=== PATIENT | male | born 1985 | race Caucasian/White ===

== ENCOUNTER 2016-11-14 18:00 | Emergency (ER) | payer OTHER, SELFPAY ==
[2016-11-14 18:00] VITALS: BMI 27.4
[2016-11-14 18:32] VITALS: BP 104/62; PULSE 80; RESP 20; TEMP 99.2; O2SAT 98
[2016-11-14] MEDS ORDERED: Oxycodone/Acetaminophen 5/325 mg Tab PO STA (18:44)
--- NOTE | 2016-11-14 18:47 | ED PDOC ---
Lower Extremity Pain/Injury Time Seen by Provider: 11/14/16 18:42 Chief Complaint (Nursing): Lower Extremity Problem/Injury Chief Complaint (Provider): Right knee pain History Per: Patient History/Exam Limitations: no limitations Onset/Duration Of Symptoms: Days (x 1) Current Symptoms Are (Timing): Still Present Additional Complaint(s): Hernandez is a 31 y/o male who presents to the ED complaining of right knee pain, after sustaining an injury earlier today. He describes hearing a snapping sound when he slipped and twisted his right knee today. Patient reports history of a ligament tear surgery 3 years ago. Previously followed by [facility] in [place]. Orthopedist: [facility] Past Medical History Reviewed: Historical Data, Nursing Documentation, Vital Signs Vital Signs: Last Vital Signs Temp 99.2 F 11/14/16 18:28 Pulse 80 11/14/16 18:28 Resp 20 11/14/16 18:28 BP 104/62 11/14/16 18:28 Pulse Ox 98 11/14/16 18:28 - Medical History PMH: No Chronic Diseases - Surgical History Surgical History: Appendectomy Other surgeries: ligament tear surgery - Family History Family History: States: Unknown Family Hx - Social History Current smoker - smoking cessation education provided: No Alcohol: None Drugs: Denies - Home Medications Home Medications: Ambulatory Orders Medication Instructions Recorded Tramadol HCl [Ultram] 50 mg PO Q6 #8 tab 11/14/16 - Allergies Allergies/Adverse Reactions: Allergies Allergy/AdvReac Type Severity Reaction Status Date / Time aspirin Allergy RASH Verified 11/14/16 18:50 ibuprofen [From Advil] Allergy RASH Verified 11/14/16 18:50 Review of Systems ROS Statement: Except As Marked, All Systems Reviewed And Found Negative Constitutional: Positive for: Other (Injury earlier today) Musculoskeletal: Positive for: Leg Pain (Right knee pain) Physical Exam - Reviewed Nursing Documentation Reviewed: Yes Vital Signs Reviewed: Yes - Physical Exam Appears: Positive for: Non-toxic, No Acute Distress Head Exam: Positive for: ATRAUMATIC, NORMAL INSPECTION, NORMOCEPHALIC Skin: Positive for: Normal Color, Warm, Dry Eye Exam: Positive for: EOMI, Normal appearance, PERRL ENT: Positive for: Normal ENT Inspection Neck: Positive for: Normal, Painless ROM, Supple Cardiovascular/Chest: Positive for: Regular Rate, Rhythm. Negative for: Murmur Respiratory: Positive for: Normal Breath Sounds. Negative for: Accessory Muscle Use, Respiratory Distress Gastrointestinal/Abdominal: Positive for: Normal Exam, Soft. Negative for: Tenderness Back: Positive for: Normal Inspection. Negative for: Vertebral Tenderness Extremity: Positive for: Normal ROM, Swelling (Swelling appreciated at the right knee), Other (Pulses normal). Negative for: Tenderness (to the knee) Neurologic/Psych: Positive for: Alert, Oriented - ECG O2 Sat by Pulse Oximetry: 98 (RA) Pulse Ox Interpretation: Normal Medical Decision Making Medical Decision Making: Time: 18:44 Impression: Most likely no fracture, high likelihood of ligament tear Plan: --Needs outpatient MRI and follow up with Orthopedic Surgeon --Ortho RICE instructions provided --Patient will be given knee immobilizer and Rx for Tramadol for pain control Scribe Attestation: Documented by Светлана Valentino, acting as a scribe for Latosha Mariscal PA-C. Provider Scribe Attestation: All medical record entries made by the Scribe were at my direction and personally dictated by me. I have reviewed the chart and agree that the record accurately reflects my personal performance of the history, physical exam, medical decision making, and the department course for this patient. I have also personally directed, reviewed, and agree with the discharge instructions and disposition. Disposition - Clinical Impression Clinical Impression: Knee pain, Knee injury - Disposition Referrals: [facility] [Outside] Condition: FAIR Prescriptions: Tramadol HCl [Ultram] 50 mg PO Q6 #8 tab Instructions: Swollen Knee Joint (ED), Knee Pain (ED) Forms: [facility] ED School/Work Excuse
== END 2016-11-14 19:24 | disposition home or self-care (01) ==
LOC: H.ER 18:00
DX: S89.91XA Unspecified injury of right lower leg, initial encounter (principal); X50.9XXA Other and unspecified overexertion or strenuous movements or postures, initial encounter; Y92.89 Other specified places as the place of occurrence of the external cause

== ENCOUNTER 2017-12-20 13:29 | Emergency (ER) | payer OTHER, SELFPAY ==
[2017-12-20 13:49] VITALS: BMI 29.0
[2017-12-20] MEDS ORDERED: Sodium Chloride 0.9% 1,000 ML IV STA (14:07)
--- NOTE | 2017-12-20 14:29 | ED PDOC ---
Syncope/Near Syncope/Dizziness Time Seen by Provider: 12/20/17 13:54 Chief Complaint (Nursing): Dizziness/Lightheaded Chief Complaint (Provider): Dizziness/Lightheaded History Per: Patient History/Exam Limitations: no limitations Onset/Duration Of Symptoms: Days (x1.5 weeks) Activity At Onset Of Symptoms: Standing Associated Symptoms Preceding Syncopal Episode: Lightheadedness Additional Complaint(s): Patient is a 32 y/o male with no significant past medical history who presents to the ED complaining of intermittent dizziness, onset a week and half ago. Patient reports feeling lightheaded normally with the dizziness but today states he felt as though the room was spinning. He states initially dizziness came on when he went from a sitting position to a standing position but toay symptoms come on any time he turns his head. He has an associated mild intermittent headache that is more intense today than usual. Otherwise: (+) lightheadedness, (+) mild intermittent headache, (-) trauma, (- ) tinnitus, (-) hearing loss, (-) chest pain, (-) dyspnea, (-) fever, (-) vomiting, (-) diarrhea, (-) syncope, (-) GI bleeding, (-) no recent illness, ( -) shortness of breath, (-) palpitations. Past Medical History Reviewed: Historical Data, Nursing Documentation, Vital Signs Vital Signs: Last Vital Signs Temp 98.2 F 12/20/17 13:48 Pulse 70 12/20/17 13:48 Resp 16 12/20/17 13:48 BP 124/80 12/20/17 13:48 Pulse Ox 97 12/20/17 13:48 - Medical History PMH: No Chronic Diseases - Surgical History Surgical History: Appendectomy - Family History Family History: States: Diabetes (father) - Social History Alcohol: Occasional - Home Medications Home Medications: Ambulatory Orders Medication Instructions Recorded Cane 1 each MC DAILY #1 each 11/14/16 Tramadol HCl [Ultram] 50 mg PO Q6 #8 tab 11/14/16 - Allergies Allergies/Adverse Reactions: Allergies Allergy/AdvReac Type Severity Reaction Status Date / Time aspirin Allergy RASH Verified 11/14/16 18:50 ibuprofen [From Advil] Allergy RASH Verified 11/14/16 18:50 Review of Systems ROS Statement: Except As Marked, All Systems Reviewed And Found Negative Constitutional: Negative for: Fever Cardiovascular: Negative for: Chest Pain, Palpitations Respiratory: Negative for: Shortness of Breath Neurological: Positive for: Headache, Dizziness Physical Exam - Reviewed Nursing Documentation Reviewed: Yes Vital Signs Reviewed: Yes - Physical Exam Comments: GENERALIZED APPEARANCE:Patient is awake, alert, oriented x3 in mild distress. SKIN: Warm, dry; (-) cyanosis. HEAD: (-) scalp swelling or tenderness. EYES: (-) conjunctival pallor, (+) horizontal nystagmus ENMT: Mucous membranes dry. NECK: (-) tenderness, (-) stiffness, (-) lymphadenopathy. CHEST AND RESPIRATORY: (-) rales, (-) rhonchi, (-) wheezes; breath sounds equal bilaterally. HEART AND CARDIOVASCULAR: (-) irregularity; (-) murmur, (-) gallop. ABDOMEN AND GI: Soft; (-) distention, (-) tenderness, (-) rebound, (-) guarding , (-) palpable masses, (-) flank tenderness. EXTREMITIES: (-) deformity; (-) edema. Distal pulses: present. NEURO AND PSYCH: Mental status as above. 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 Strength symmetric. Gait: normal. - ECG ECG Rhythm: Positive for: Normal ST Segment, Sinus Bradycardia Rate: 54 O2 Sat by Pulse Oximetry: 97 (RA) Medical Decision Making Medical Decision Making: Time: 14::06 Impression: Dizziness Initial Plan: --CT Head w/o contrast --EKG --CMP --Drug screen --Troponin I --ED urine dipstick --CBC w/ diff --CXR --Antivert --IV Fluids Scribe Attestation: Documented by Evan Grullon acting as a scribe for Haleigh Ring PA-C Provider Scribe Attestation: All medical record entries made by the Scribe were at my direction and personally dictated by me. I have reviewed the chart and agree that the record accurately reflects my personal performance of the history, physical exam, medical decision making, and the department course for this patient. I have also personally directed, reviewed, and agree with the discharge instructions and disposition. Disposition - Disposition
[2017-12-20 14:37] LABS: BASO # 0.1 K/uL (0.0-0.2); BASO % 1.1 % (0.0-2.0); EOS # 0.3 K/uL (0.0-0.7); EOS % 4.8 % (0.0-4.0); LYMPH # 2.2 K/uL (1.0-4.3); LYMPH % 30.6 % (20.0-40.0); MEAN CELL VOLUME 86.4 fl (80.0-94.0); MEAN CORPUSCULAR HEMOGLOBIN 29.6 pg (27.0-31.0); MEAN CORPUSCULAR HGB CONC 34.3 g/dL (33.0-37.0); MEAN PLATELET VOLUME 7.2 fl (7.2-11.7); MONO # 0.9 K/uL (0.0-0.8); NEUT # 3.7 K/uL (1.8-7.0); NEUT % 51.5 % (50.0-75.0); NRBC % 0.1 % (0.0-0.0); RBC 5.39 Mil/uL (4.40-5.90); WHITE BLOOD COUNT 7.1 K/uL (4.8-10.8)
--- NOTE | 2017-12-20 14:38 | ED PDOC ---
Syncope/Near Syncope/Dizziness Time Seen by Provider: 12/20/17 13:54 Chief Complaint (Nursing): Dizziness/Lightheaded Chief Complaint (Provider): Dizziness/Lightheaded History Per: Patient History/Exam Limitations: no limitations Onset/Duration Of Symptoms: Days (x1.5 weeks) Activity At Onset Of Symptoms: Standing Associated Symptoms Preceding Syncopal Episode: Lightheadedness Possible Causative Factor(s): Lightheaded W/Standing Additional Complaint(s): Patient is a 32 y/o male with no significant past medical history who presents to the ED complaining of intermittent dizziness, onset a week and half ago. Patient reports describing the dizziness as lightheadedness which was initially intermittent however today states he felt as though the room was spinning. He states initially dizziness came on when he went from a sitting position to a standing position but today symptoms occur any time he turns his head. He has an associated mild intermittent headache that is more intense today than usual. Otherwise: (+) lightheadedness, (+) mild intermittent headache, (-) trauma, (- ) tinnitus, (-) hearing loss, (-) chest pain, (-) dyspnea, (-) fever, (-) URI, ( -) vomiting, (-) diarrhea, (-) syncope, (-) GI bleeding, (-) no recent illness , (-) shortness of breath, (-) palpitations. Past Medical History Vital Signs: Last Vital Signs Temp 98.2 F 12/20/17 13:48 Pulse 70 12/20/17 13:48 Resp 16 12/20/17 13:48 BP 124/80 12/20/17 13:48 Pulse Ox 97 12/20/17 14:31 - Medical History PMH: No Chronic Diseases - Surgical History Surgical History: Appendectomy - Family History Family History: States: Diabetes (father) - Social History Alcohol: Occasional - Home Medications Home Medications: Ambulatory Orders Medication Instructions Recorded Cane 1 each MC DAILY #1 each 11/14/16 Tramadol HCl [Ultram] 50 mg PO Q6 #8 tab 11/14/16 Meclizine [Meclizine*] 25 mg PO Q6 PRN #20 tab 12/20/17 - Allergies Allergies/Adverse Reactions: Allergies Allergy/AdvReac Type Severity Reaction Status Date / Time aspirin Allergy RASH Verified 11/14/16 18:50 ibuprofen [From Advil] Allergy RASH Verified 11/14/16 18:50 Review of Systems Constitutional: Negative for: Fever Cardiovascular: Negative for: Chest Pain, Palpitations Respiratory: Negative for: Shortness of Breath Gastrointestinal: Negative for: Vomiting Neurological: Positive for: Headache, Dizziness Physical Exam - Reviewed Nursing Documentation Reviewed: Yes Vital Signs Reviewed: Yes - Physical Exam Comments: GENERALIZED APPEARANCE:Patient is awake, alert, oriented x3 in mild distress. SKIN: Warm, dry; (-) cyanosis. HEAD: (-) scalp swelling or tenderness. EYES: (-) conjunctival pallor. ENMT: Mucous membranes dry. NECK: (-) tenderness, (-) stiffness, (-) lymphadenopathy. CHEST AND RESPIRATORY: (-) rales, (-) rhonchi, (-) wheezes; breath sounds equal bilaterally. HEART AND CARDIOVASCULAR: (-) irregularity; (-) murmur, (-) gallop. ABDOMEN AND GI: Soft; (-) distention, (-) tenderness, (-) rebound, (-) guarding , (-) palpable masses, (-) flank tenderness. EXTREMITIES: (-) deformity; (-) edema. Distal pulses: present. NEURO AND PSYCH: Mental status as above. 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 Strength symmetric. Gait: not tested at this time. - Laboratory Results Result Diagrams: 12/20/17 14:33 12/20/17 14:33 - ECG ECG Rhythm: Positive for: Normal ST Segment, Sinus Bradycardia Rate: 54 O2 Sat by Pulse Oximetry: 97 (RA) Pulse Ox Interpretation: Normal Medical Decision Making Medical Decision Making: Time: 14:06 Impression: Dizziness Initial Plan: --CT Head w/o contrast --EKG --CMP --Drug screen --Troponin I --ED urine dipstick --CBC w/ diff --CXR --Antivert --IV Fluids CXR : NAD, as read by AUGIE. EKG : NSR at 54 bpm, (-) acute ST changes, as read by AUGIE. Udip : +blood, otherwise all (-) CT head without contrast: No acute intracranial abnormality. Labs reviewed and all within normal limits including negative troponin. On reevaluation, patient reports improvement of symptoms, denies any headache, dizziness, chest pain or shortness of breath. On exam, patient remains awake alert and oriented 3 in no acute distress. VSS. Neck is supple, repeat neuro exam shows no focal findings, gait is steady. Diagnostic results discussed with the patient in great detail. Diagnosis of vertigo discussed with the patient. Based on history, exam and diagnostic results plan will be for outpatient follow -up. Advised to follow up with the clinic in 1-2 days without fail. Advised to take medication as prescribed. Return to the emergency room at any time for any new or worsening symptoms. Patient states he fully agrees with and understands discharge instructions. States that he agrees with the plan and disposition. Verbalized and repeated discharge instructions and plan. I have given the patient opportunity to ask any additional questions. Scribe Attestation: Documented by Evan Grullon acting as a scribe for Haleigh Ring PA-C Provider Scribe Attestation: All medical record entries made by the Scribe were at my direction and personally dictated by me. I have reviewed the chart and agree that the record accurately reflects my personal performance of the history, physical exam, medical decision making, and the department course for this patient. I have also personally directed, reviewed, and agree with the discharge instructions and disposition. Disposition - Clinical Impression Clinical Impression: Vertigo - Patient ED Disposition Is Patient to be Admitted: No Counseled Patient/Family Regarding: Studies Performed, Diagnosis, Need For Followup, Rx Given - Disposition Referrals: FAMILY PROVIDER,JOSLYN [Primary Care Provider] - [facility] [Outside] Disposition: Routine/Home Disposition Time: 16:00 Condition: STABLE Additional Instructions: Thank you for letting us take care of you today. You were treated for vertigo. The emergency medical care you received today was directed at your acute symptoms. If you were prescribed any medication, please fill it and take as directed. It may take several days for your symptoms to resolve. Return to the Emergency Department if your symptoms worsen, do not improve, or if you have any other problems. Please follow up with the clinic in 2 days for re-evaluation and follow up. Bring any paperwork you were given at discharge with you along with any medications you are taking to your follow up visit. Our treatment cannot replace ongoing medical care by a primary care provider (PCP) outside of the emergency department. Thank you for allowing the [facility] team to be part of your care today. If you had an X-Ray or CT scan: A Radiologist will review the ED reading if any change in treatment is needed we will contact you. Prescriptions: Meclizine [Meclizine*] 25 mg PO Q6 PRN #20 tab PRN Reason: Dizziness Instructions: Vertigo (a Type of Dizziness) (DC) Forms: [employer] (Surinamese) - PA / WIRE SPINNER / Resident Statement MD/DO has reviewed & agrees with the documentation as recorded.
--- NOTE | 2017-12-20 14:46 | RAD ---
Date of service: 12/20/2017 HISTORY: dizziness COMPARISON: No prior. FINDINGS: LUNGS: No active pulmonary disease. PLEURA: No significant pleural effusion identified, no pneumothorax apparent. CARDIOVASCULAR: Normal. OSSEOUS STRUCTURES: No significant abnormalities. VISUALIZED UPPER ABDOMEN: Normal. OTHER FINDINGS: None. IMPRESSION: No active disease.
[2017-12-20 14:47] LABS: ALB/GLOB RATIO 1.5 (1.0-2.1); ALBUMIN 4.6 g/dL (3.5-5.0); ALT/SGPT 64 U/L (21-72); AST/SGOT 38 U/L (17-59); BLOOD UREA NITROGEN 17 mg/dl (9-20); CALCIUM 9.7 mg/dL (8.4-10.2); GFR NON-AFRICAN AMERICAN > 60
--- NOTE | 2017-12-20 14:49 | CT ---
Date of service: 12/20/2017 PROCEDURE: CT HEAD WITHOUT CONTRAST. HISTORY: dizziness COMPARISON: None available. TECHNIQUE: Axial computed tomography images were obtained through the head/brain without intravenous contrast. Radiation dose: Total exam DLP = 787.3 mGy-cm. This CT exam was performed using one or more of the following dose reduction techniques: Automated exposure control, adjustment of the mA and/or kV according to patient size, and/or use of iterative reconstruction technique. FINDINGS: HEMORRHAGE: No intracranial hemorrhage. BRAIN: No mass effect or edema. No atrophy or chronic microvascular ischemic changes. VENTRICLES: Unremarkable. No hydrocephalus. CALVARIUM: Unremarkable. PARANASAL SINUSES: Unremarkable as visualized. No significant inflammatory changes. MASTOID AIR CELLS: Unremarkable as visualized. No inflammatory changes. OTHER FINDINGS: None. IMPRESSION: No acute intracranial hemorrhage.
[2017-12-20 15:17] LABS: BARBITURATES, UR NEGATIVE (NEGATIVE); BENZODIAZEPINES, UR NEGATIVE (NEGATIVE); OPIATES, UR NEGATIVE (NEGATIVE); PHENCYCLIDINE, UR NEGATIVE (NEGATIVE)
[2017-12-20 16:24] VITALS: BP 115/78; PULSE 69; RESP 15; TEMP 97.9; O2SAT 100
--- NOTE | 2017-12-20 22:56 | CARD ---
APPROVED REPORT Date of service: 12/20/2017 EKG Measurement Heart [id number] <Conclusion> Sinus bradycardia Otherwise normal ECG
== END 2017-12-20 16:22 | disposition home or self-care (01) ==
LOC: H.ER 13:29
DX: R42 Dizziness and giddiness (principal); Z88.6 Allergy status to analgesic agent
CPT/HCPCS: 70450; 71045; 80053; 80324; 80345; 80346; 80349; 80353; 80358; 80361; 83992; 84484; 85025; 93005; 96360; 99285; J7030